=== PATIENT | female | born 1995 | race Caucasian/White ===

== ENCOUNTER 2023-12-05 15:56 | Emergency (ER) | payer SELFPAY ==
[2023-12-05 15:58] VITALS: BP 123/95; PULSE 145; RESP 18; TEMP 37.7; O2SAT 100; BMI 24.3
--- NOTE | 2023-12-05 16:09 | EDS_ITS ---
HPI History of Present Illness Chief Complaint: Sore Throat Informant: patient Onset/Context/Timing Onset: Yesterday Context: Gradual Onset Narrative Narrative: Patient presents secondary to sore throat. She states that she was sick about a month ago and has some continued sinus congestion. Last evening she has noted left-sided sore throat that progressed throughout the night. She reports a fever at home but did not have a thermometer to check her temperature. She took Motrin 5 hours ago. She has not had significant cough. No vomiting or diarrhea. [facility] Medical History (Updated 12/05/23 @ 17:[address] Anaya Clark MD) Endometriosis Home Medications amoxicillin 500 mg capsule 500 mg PO BID #20 caps 12/05/23 [Rx Last Taken Unknown] naproxen 500 mg tablet (Naprosyn) 500 mg PO BID PRN pain #20 tabs 12/05/23 [Rx Last Taken Unknown] Allergy/AdvReac Type Severity Reaction Status Date / Time cefaclor Allergy Intermediate Rash Verified 12/05/23 15:57 Social History Smoking Status: Never smoker ROS ROS ED Constitutional Constitutional ED: Reports fever(s) and subjective; Denies chills Eyes Eyes: Denies change in vision or discharge from eye(s) ENT ENT ED: Reports sore throat and other Details: Congestion ; Denies discharge from eye(s) or rhinorrhea Cardiovascular Cardiovascular: Denies chest pain Respiratory/Chest Respiratory/Chest: Denies cough or dyspnea Gastrointestinal Gastrointestinal: Denies abdominal pain, nausea or vomiting Musculoskeletal Musculoskeletal: Denies back pain or extremity pain Integumentary Denies Abrasions or rash Neurologic Neurologic: Denies headache(s) or weakness Psychiatric Psychiatric: Denies anxiety or depression Allergic/Immunologic Allergic/Immunologic ED: Denies lip swelling or urticaria EXAM Physical Exam Narrative Exam Narrative: Patient sitting upright in bed no acute distress. She is tolerating secretions well and speaks with a strong voice. Const Vital Signs: 12/05/23 15:58 Temperature 99.9 F H Temperature Source Temporal Pulse Rate 145 H Respiratory Rate 18 Blood Pressure 123/95 H Blood Pressure Mean 104 Pulse Ox 100 Oxygen Delivery Method Room Air Positive well nourished and well developed General Appearance ED: well developed HEENT Reports moist mucous membranes HEENT Narrative: Posterior pharynx exam reveals mild sinus drainage. Uvula is midline. No significant tonsillar enlargement. Patient tolerating secretions well. Eyes EOMs intact bilaterally Chest Wall inspection of chest normal and palpation of chest normal Resp normal respiratory effort and clear to auscultation bilaterally Cardio regular rhythm Rate: tachycardic GI non-tender Palpation: soft Extremity normal to inspection Neuro oriented x3 Motor Exam: strength 5/5 throughout Psych mental status grossly normal Skin no rashes or lesions noted MDM MDM MDM Narrative Medical decision making narrative: IV line established. Patient given IV fluids with a dose of Decadron. Labwork obtained to evaluate for leukocytosis, anemia, and electrolyte derangement. Swab for rapid strep obtained along with swab for COVID, influenza, and RSV. Lab Data Attestation: I reviewed the patient's lab results. Labs: Laboratory Results - last 24 hr 12/05/23 16:25 WBC 15.1 H RBC 4.39 Hgb 13.3 Hct 39.9 MCV 90.9 MCH 30.3 MCHC 33.3 RDW Std Deviation 39.8 RDW Coeff of Boo 11.9 Plt Count 248 MPV 11.0 Immature Gran % (Auto) 0.500 Neut % (Auto) 89.2 H Lymph % (Auto) 4.1 L [place] % (Auto) 5.8 Eos % (Auto) 0.1 Baso % (Auto) 0.3 Absolute Neuts (auto) 13.5 H Absolute Lymphs (auto) 0.62 L Nucleated RBC % 0 Sodium 136 Potassium 3.6 Chloride 110 H Carbon Dioxide 22.0 Anion Gap 4 L BUN 11 Creatinine 0.99 Estim Creat Clear Calc 74.75 Est GFR (MDRD) Af Amer 87 Est GFR (MDRD) Non-Af 72 BUN/Creatinine Ratio 11.1 Glucose 115 H Calcium 9.2 Serum , Qual NEGATIVE Treatment and Re-Evaluation :: CBC was elevated white count of 15.1 with 89% neutrophils. Chemistry studies are unremarkable. test negative. Swab for COVID, influenza, and RSV is negative. Swab for rapid strep is negative. On repeat evaluation patient continues to have strong voice and is tolerating secretions. She is drinking Sprite at the time of my exam. Given her elevated white count I will cover her with amoxicillin for pharyngitis. Clinically she has no evidence of abscess and I do not believe she needs imaging. Return instructions were provided. She will also be treated with naproxen for pain. Discharge Plan Triage Chief Complaint: Sore Throat ED Provider: Anaya Clark Dx/Rx/DC Orders Clinical Impression: Pharyngitis Instructions: ED Pharyngitis, Report Pending Prescriptions: New amoxicillin 500 mg capsule 500 mg PO BID Qty: 20 0RF naproxen [Naprosyn] 500 mg tablet 500 mg PO BID PRN (Reason: pain) Qty: 20 0RF Primary Care Provider: Care Physician,No Primary Referrals: Jeferson Stone MD [Med Staff - Active Staff] - As Needed Care Physician,No Primary [Primary Care Provider] - Disposition Disposition: Home, Self Care
[2023-12-05] MEDS: dexAMETHasone 10 MG/ML Vial 6 MG IV (16:23)
[2023-12-05] MEDS: 0.9% Normal Saline (1000mL) 1,000 ML 1000 ML IV (16:23)
[2023-12-05 16:50] LABS: Absolute Lymphocyte Count 0.62 X10^3/uL (0.83-4.51); Absolute Neutrophil Count 13.5 X10^3/uL (2.0-7.7); Basophil# 0.04 X10^3/uL; Basophil% 0.3 % (0-1); Eosinophil# 0.01 X10^3/uL; Eosinophils% 0.1 % (0-5); Hematocrit 39.9 % (37-47); Hemoglobin 13.3 g/dL (12.0-15.0); Lymphocyte # 0.62 X10^3/ul (0.83-4.51); Lymphocyte % 4.1 % (19-41); Mean Corp Hgb Conc 33.3 g/dL (32-36); Mean Corpuscular Hgb 30.3 pg (27.0-32.0); Mean Corpuscular Volume 90.9 fL (81-99); Monocyte# 0.88 X10^3/uL; Monocyte% 5.8 % (0-10); NRBC Flagged by Analyzer 0 % (0-5); Neutrophil # 13.51 X10^3/uL (2.7-7.7); Neutrophil % 89.2 % (47-70); Platelet Count 248 K/mm3 (150-450); RBC Distribution Width CV 11.9 % (11.6-14.6); RBC Distribution Width SD 39.8 fl (35.1-43.9); Red Blood Count 4.39 M/mm3 (4.2-5.4); White Blood Count 15.1 K/mm3 (4.4-11.0)
[2023-12-05 17:00] LABS: Anion Gap 4 (5-15); BUN 11 mg/dL (7-18); BUN/Creat Ratio 11.1 RATIO (10-20); Calcium,Total 9.2 mg/dL (8.5-10.1); Chloride 110 mmol/L (98-107); Creatinine, Serum 0.99 mg/dL (0.55-1.02); EST Glomerular Filtration Rate 72 mL/min (>60); Est Glom Filt Rate - Afr Amer 87 mL/min (>60); Estimated Creatinine Clearance 74.75 ml/min; Glucose 115 mg/dL (74-106); Potassium 3.6 mmol/L (3.5-5.1); Sodium Level 136 mmol/L (136-145)
[2023-12-05 17:20] LABS: Internal QC Validated? YES +Cl - CLEAR BKGD; Pregnancy, Serum, hCG Quali. NEGATIVE Negative
[2023-12-05] MEDS: Naproxen 500 MG Tablet PO (18:00)
[2023-12-05] MEDS: AMOXICILLIN 500 MG CAPSULE PO (18:00)
== END 2023-12-05 18:08 | disposition home or self-care (01) ==
PROVIDERS: Emergency Provider Emergency Medicine; Visit Provider Emergency Medicine
DX: J02.9 Acute pharyngitis, unspecified (principal)
CPT/HCPCS: 80048; 84703; 85025; 87631; 87651; 96361; 96374; 99284; J7030; A4216